=== PATIENT | female | born 1950 | race African-American/Black ===

== ENCOUNTER → 2017-01-04 | Outpatient (CLI) | payer OTHER ==
--- NOTE | ~2017-01-04 | MY29 ---
[facility] A Service of [facility] RADIOLOGY TEXT RESULTS PATIENT: BERHANE RAMIREZ LOCATION: [facility] : 46 UNIT #: [id number] AGE: [address]: REGINALDO CARLOS APRN SEX: F ORDER DR: [id number] [facility] [address] [place], [place] [address] [id number] O MR#: [id number] Acc #: [id number] NAME: BERHANE RAMIREZ : 1950 SEX: F STUDY DATE/TIME: 01/04/2017 9:52 UNIT: [facility] ROOM: STUDY DESCRIPTION: MY [place] SCREENING W/ CAD BILAT Attending Physician: Reginaldo Carlos Aprn Referring Physician: Reginaldo Carlos Aprn Ordering Physician: Physician Non-Staff Primary Care Physician: Reginaldo Carlos Aprn MEDICAL IMAGING REPORT This report is preliminary unless electronic signature is present EXAM Digital screening mammogram 01/04/2017 HISTORY 66-year-old woman no risk elevation. Annual screen. COMPARISON Mammograms date to 12/13/2009 with most recent 12/22/2015. FINDINGS Digital imaging of each breast was completed utilizing screening protocol. Review includes FDA-approved CAD device. Breast parenchyma is partially fatty replaced. Scattered parenchymal opacities remain dominant in the left breast upper outer quadrant. I see no developing mass and no interval occurring microcalcifications. There is no suspicious architectural deformity. IMPRESSION Negative stable mammogram. Annual screening recommended. Patients over the age of 40 are entered into a reminder system with target due date for the next mammogram. A result letter will also be sent to the patient. BIRADS: 1 Negative Dictated by... Reza Bowers M.D. THIS IS AN ELECTRONICALLY VERIFIED REPORT Reza Bowers M.D. at 01/04/2017 12:58 PM CRISB/steven [facility] A Service of [facility] & [facility] RADIOLOGY TEXT RESULTS PATIENT: BERHANE RAMIREZ LOCATION: [facility] : 46 UNIT #: [id number] AGE: [address]: REGINALDO CARLOS APRN SEX: F ORDER DR: TD: 01/04/2017 12:33 JOB #: [id number] MEDICAL IMAGING REPORT Page 1 of 1 COPY
== END | disposition home or self-care (01) ==
LOC: CWCC 09:22
DX: Z12.31 Encounter for screening mammogram for malignant neoplasm of breast (principal)
CPT/HCPCS: G0202